=== PATIENT | male | born 1970 | race Caucasian/White ===

== ENCOUNTER 2016-04-21 10:39 | Emergency (ER) | payer SELFPAY ==
--- NOTE | 2016-04-21 13:28 | RAD ---
HIP - RIGHT 2 VW + AP PELVIS COMPARISON: None HISTORY: Right groin and hip pain since last night. No injury. FINDINGS: Views: AP pelvis. Right hip AP and lateral. Bones: Normal. Joints: Normal. Soft tissues: Normal. IMPRESSION: 1. Normal one view pelvis and 2 views right hip.
[2016-04-21] MEDS ORDERED: HYDROCODONE/ACETAMINOPHEN 5/325MG TABLET ONE (13:30)
== END 2016-04-21 14:15 | disposition home or self-care (01) ==
LOC: ED 10:39
DX: M25.551 Pain in right hip (principal); F17.210 Nicotine dependence, cigarettes, uncomplicated
CPT/HCPCS: 73502; 99283 ×2; A9270